=== PATIENT | female | born 1950 | race Caucasian/White ===

== ENCOUNTER 2019-01-08 19:43 | Emergency (ER) | payer MEDICARE, BC ==
[2019-01-08 20:08] VITALS: BP 140/78
--- NOTE | 2019-01-08 20:10 | UC ---
Lower Extremity/Ankle HPI - HPI Summary HPI Summary: slipped and fell this afternoon twisting right ankle - History of Current Complaint Chief Complaint: UCLowerExtremity Stated Complaint: R ANKLE INJURY Time Seen by Provider: 01/08/19 19:59 Hx Obtained From: Patient ?: No Onset/Duration: Sudden Onset, Lasting Hours, Still Present Severity Initially: Moderate Severity Currently: Mild - took ibuprofen tank cleaner Pain Intensity: 0 Aggravating Factor(s): Standing, Ambulation Able to Bear Weight: Yes - Allergies/Home Medications Allergies/Adverse Reactions: Allergies Allergy/AdvReac Type Severity Reaction Status Date / Time No Known Allergies Allergy Verified 01/08/19 19:50 Home Medications: Home Medications Ibuprofen TAB* [Motrin TAB* 400 MG] 400 mg PO ONCE PRN 01/08/19 [History Confirmed 01/08/19] PMH/Surg Hx/FS Hx/Imm Hx Previously Healthy: Yes Other History Of: Negative For: Anticoagulant Therapy - Surgical History Surgical History: Yes Surgery Procedure, Year, and Place: hysterectomy,D/C, abdominal surgery - intestinal blockage - Family History Known Family History: Positive: None - Social History Occupation: Retired Lives: With Family Alcohol Use: Occasionally Alcohol Amount: 1 glass of wine today at dinner Substance Use Type: None Smoking Status (MU): Former Smoker - Immunization History Most Recent Influenza Vaccination: 2012 Most Recent Tetanus Shot: up to date Most Recent Pneumonia Vaccination: 2012 Review of Systems All Other Systems Reviewed And Are Negative: Yes Constitutional: Positive: Negative Skin: Positive: Negative Eyes: Positive: Negative ENT: Positive: Negative Respiratory: Positive: Negative Cardiovascular: Positive: Negative Gastrointestinal: Positive: Negative Genitourinary: Positive: Negative Motor: Positive: Decreased ROM - right ankle Neurovascular: Positive: Negative Musculoskeletal: Positive: Arthralgia - right lateral ankle, Edema Neurological: Positive: Negative Psychological: Positive: Negative Is Patient Immunocompromised?: No Physical Exam Triage Information Reviewed: Yes Appearance: Well-Appearing, No Pain Distress, Well-Nourished Vital Signs: Initial Vital Signs Temp 98.9 F 01/08/19 19:51 Pulse 69 01/08/19 19:51 Resp 20 01/08/19 19:51 BP 0/0 01/08/19 19:51 Pulse Ox 98 01/08/19 19:51 Vital Signs Reviewed: Yes Eye Exam: Normal Eyes: Positive: Conjunctiva Clear ENT Exam: Normal ENT: Positive: Normal ENT inspection, Hearing grossly normal. Negative: Nasal congestion, Trismus, Muffled voice, Hoarse voice Dental Exam: Normal Neck exam: Normal Neck: Positive: Supple, Nontender Respiratory Exam: Normal Respiratory: Positive: No respiratory distress, No accessory muscle use Cardiovascular Exam: Normal Cardiovascular: Positive: RRR, Pulses Normal, Brisk Capillary Refill Musculoskeletal Exam: Other Musculoskeletal: Positive: Strength Intact, ROM Limited @ - right ankle, Edema @ - right lateral ankle Neurological Exam: Normal Neurological: Positive: Alert, Muscle Tone Normal Psychological Exam: Normal Skin Exam: Normal Diagnostics - Radiology No standard instances Radiology Interpretation Completed By: ED Physician - fracture lateral malleolus Lower Extremity Course/Dx - Course Course Of Treatment: cam boot, non weight bearing, crutches, RICE, IBUPROFEN (patient refused additional pain med) for with orthopedic in 2-3 days. recheck bp with pcp in 1- 2 weeks - Differential Dx/Diagnosis Provider Diagnosis: Closed right ankle fracture, Hypertension Discharge - Sign-Out/Discharge Documenting (check all that apply): Patient Departure All imaging exams completed and their final reports reviewed: No Studies - Discharge Plan Condition: Stable Disposition: HOME Patient Education Materials: Ibuprofen (By mouth), Ankle Fracture (ED), Crutch Instructions (ED), R.I.C.E. Treatment (ED) Referrals: Yudith Hylton NP [Primary Care Provider] - 2 Weeks (bp re-check) Flaco Naik MD [Medical Doctor] - 2 Days Additional Instructions: ++++remain completely non weight bearing on right leg---keep boot on! - Billing Disposition and Condition Condition: STABLE Disposition: Home
--- NOTE | 2019-01-08 23:34 | UC ---
- Progress Note Progress Note: RADIOLOGY REPORT REVIEWED. CONFIRMS Spiral fracture of the distal fibula without significant displacement. NO CHANGE IN MGMT. Course/Dx - Diagnoses Provider Diagnoses: Closed right ankle fracture, Hypertension Discharge - Sign-Out/Discharge Documenting (check all that apply): Post-Discharge Follow Up All imaging exams completed and their final reports reviewed: Yes - Discharge Plan Condition: Stable Disposition: HOME Patient Education Materials: Ibuprofen (By mouth), Ankle Fracture (ED), Crutch Instructions (ED), R.I.C.E. Treatment (ED) Referrals: Yudith Hylton NP [Primary Care Provider] - 2 Weeks (bp re-check) Flaco Naik MD [Medical Doctor] - 2 Days Additional Instructions: ++++remain completely non weight bearing on right leg---keep boot on! - Billing Disposition and Condition Condition: STABLE Disposition: Home
[2019-01-10 09:25] LABS: Hepatitis C Antibody Nonreactive (Nonreactive)
== END 2019-01-08 21:02 | disposition home or self-care (01) ==
LOC: UCEAST 19:43
DX: S82.831A Other fracture of upper and lower end of right fibula, initial encounter for closed fracture (principal); W01.0XXA Fall on same level from slipping, tripping and stumbling without subsequent striking against object, initial encounter; Y92.9 Unspecified place or not applicable; I10 Essential (primary) hypertension; Z87.891 Personal history of nicotine dependence
CPT/HCPCS: 36415; 86803; 99211; G0463

== ENCOUNTER 2019-10-27 09:33 | Emergency (ER) | payer MEDICARE, BC ==
[2019-10-27 09:41] VITALS: BP 149/96
--- NOTE | 2019-10-27 10:20 | UC ---
Throat Pain/Nasal Cam HPI - HPI Summary HPI Summary: CHIEF COMPLAINT: Sore throat, dry cough, headache, sinus discomfort. HPI: This is a healthy 69-year-old female who reports a approximately 2 month history of upper respiratory symptoms. Initially this condition has a fever and a sore throat. This resolved and then after 3 weeks. It returned and worsened in terms of the cough. Over the last few weeks and particularly over the last few days. The dry cough, congestion and especially the sore throat and sinus discomfort has worsened. This includes a headache. VITAL SIGNS REVIEWED. Within normal limits unless noted here. 149/96 NURSES NOTE REVIEWED.sore throat uri sx x 1 month not improving. - History of Current Complaint Chief Complaint: UCGeneralIllness Stated Complaint: SORE THROAT, COUGH Time Seen by Provider: 10/27/19 10:17 Pain Intensity: 0 - Allergies/Home Medications Allergies/Adverse Reactions: Allergies Allergy/AdvReac Type Severity Reaction Status Date / Time No Known Allergies Allergy Verified 10/27/19 09:41 PMH/Surg Hx/FS Hx/Imm Hx - Additional Past Medical History Additional PMH: PAST MEDICAL HISTORY- CHRONIC and RECURRENT HEALTH PROBLEM LIST REVIEWED. Information relevant to present complaint: VISIT HISTORY REVIEWED. hysterectomy,D/C, abdominal surgery -intestinal blockage MEDICATIONS & ALLERGIES REVIEWED. HYPERTENSION STATUS: Not being treated for high blood pressure. SOCIAL HISTORY: Smoker: Home: Lives with , was also been sick. Employment: Retired teacher, nonsmoker Previously Healthy: Yes Other History Of: Negative For: Anticoagulant Therapy - Surgical History Surgical History: Yes Surgery Procedure, Year, and Place: hysterectomy,D/C, abdominal surgery - intestinal blockage - Family History Known Family History: Positive: None - Social History Alcohol Use: Occasionally Alcohol Amount: 1 glass of wine today at dinner Substance Use Type: None Smoking Status (MU): Former Smoker - Immunization History Most Recent Influenza Vaccination: 2012 Most Recent Tetanus Shot: up to date Most Recent Pneumonia Vaccination: 2012 Review of Systems All Other Systems Reviewed And Are Negative: Yes Constitutional: Positive: Negative ENT: Positive: Sore Throat, Nasal Discharge, Sinus Congestion, Sinus Pain/ Tenderness Respiratory: Positive: Cough Cardiovascular: Positive: Negative Gastrointestinal: Positive: Negative Genitourinary: Positive: Negative Is Patient Immunocompromised?: No Physical Exam - Summary Physical Exam Summary: Appearance: The patient is well-appearing, is in no pain or distress, and is well-nourished. Eyes: Conjunctiva are clear. Pupils are equal and reactive to light and accommodation. Extra ocular muscle movement is intact. ENT: The hearing is grossly normal, the pharynx is normal, except for slight erythema without tonsillar swelling or exudate;the TMs are normal. There is no muffled or hoarse voice. No stridor. The maxillary sinuses are mildly tender to percussion. Neck: The neck is supple and there is no lymphadenopathy. Respiratory: The chest is non-tender to palpation and without crepitus. The lungs are clear, there are normal breath sounds, and there is no respiratory distress. No wheezes, rales or rhonchi. Cardiovascular: Heart sounds reveal a regular rate and rhythm. There are no clicks, rubs or murmurs. There are no carotid bruits or thrills. Circulation is grossly intact. Abdomen: The abdomen is soft and nontender. There is no organomegaly. Bowel sounds are present and within normal limits. No point tenderness at McBurneys point. No CVA tenderness. Musculoskeletal: Strength is intact. The patient moves all extremities. Neurological: The patient is alert. Motor and sensory are examination grossly intact. Speech is normal. Psychological: The patient displays age appropriate behavior, and is conversant. GCS=15. Skin: Negative for rashes. Triage Information Reviewed: Yes Vital Signs: Initial Vital Signs Temp 98.1 F 10/27/19 09:37 Pulse 64 10/27/19 09:37 Resp 16 10/27/19 09:37 BP 149/96 10/27/19 09:37 Pulse Ox 100 10/27/19 09:37 Vital Signs Reviewed: Yes Throat Pain/Nasal Course/Dx - Differential Dx/Diagnosis Differential Diagnosis/HQI/PQRI: Sinusitis, Tonsillitis Provider Diagnosis: Sinusitis Discharge ED - Sign-Out/Discharge Documenting (check all that apply): Patient Departure All imaging exams completed and their final reports reviewed: No Studies - Discharge Plan Condition: Stable Disposition: HOME Prescriptions: Amoxicillin PO (*) [Amoxicillin 875 MG (*)] 875 mg PO BID #14 tab MDD 2 Patient Education Materials: Sinusitis (ED) Referrals: Yudith Hylton NP [Primary Care Provider] - Additional Instructions: WE DISCUSSED: You may have a virus or a sinusitis caused by a virus or a bacteria. Start amoxicillin for 7 days. PLEASE SEEK CARE AT THE EMERGENCY DEPARTMENT IF SYMPTOMS WORSEN OR IF NEW SYMPTOMS DEVELOP. FOLLOW UP WITH YOUR PRIMARY CARE PHYSICIAN IF CONDITION CONTINUES BEYOND 5 DAYS WITHOUT IMPROVEMENT. YOUR DIAGNOSIS IS: SINUSITIS YOUR PRESCRIPTION RECOMMENDATION IS: AMOXICILLIN FOR 7 DAYS; TAKE TWICE A DAY OTHER INSTRUCTIONS: Lots of warm fluids; hot showers; steam; clear nose of secretions with warm water. Hypertension Discharge Instructions: Your blood pressure reading today was 149/96, indicating HYPERTENSION. Follow- up with your primary care provider within 4 weeks for blood pressure check and appropriate recommendations and treatment, as needed. FOR PAIN AND/OR SLEEP: For pain: Ibuprofen (Motrin and other brand names) 400-600mg PLUS acetaminophen (Tylenol and other brand names) 500mg - 1000mg every 8 hours. - Billing Disposition and Condition Condition: STABLE Disposition: Home
[2019-10-27 10:27] LABS: Influenza A Molecular Negative (Negative); Influenza B Molecular Negative (Negative)
== END 2019-10-27 10:38 | disposition home or self-care (01) ==
LOC: UCEAST 09:33
DX: J32.9 Chronic sinusitis, unspecified (principal); J02.9 Acute pharyngitis, unspecified; R05 Cough; R51 Headache; Z87.891 Personal history of nicotine dependence
CPT/HCPCS: 99212; G0463

== ENCOUNTER 2024-05-05 05:38 | Observation (INO) ==
[~2024-05-05 05:38] MED LIST: Metoclopramide 5 MG/ML VIAL (10 mg) IV PRN; NS 0.45% 1000 ml BAG 1,000 ML IV SCH; Naloxone 0.4 mg VIAL 0.4 mg/ml 1 ml VIAL IV PRN; Ondansetron 4 mg VIAL 2 MG/ML 2 ml VIAL IV PRN
[2024-05-05] MEDS ORDERED: Tranexamic Acid 1 GM/100ML BAG 2,000 MG/200 ML BAG IV ONE (06:09)
[2024-05-05] MEDS ORDERED: ceFAZolin 2 GM PREMIX 2 GM/50 ML BAG ONE (06:09)
[2024-05-05 06:19] LABS: Rapid COVID-19 Molecular Undetected (Undetected)
[2024-05-05] MEDS: Buffered Lidocaine 1% SYRIN 1 ml INTRADERM ONE (06:20)
[2024-05-05] MEDS ORDERED: Lidocaine 2% PF 5 ML VIAL ONE (06:20)
[2024-05-05] MEDS: Scopolamine 1 mg/72hr PATCH TRANSDERM ONE (06:21)
[2024-05-05] MEDS ORDERED: Midazolam 2 mg/2 ml VIAL 1 mg/ml 2 ml VIAL (2 mg) ONE (06:21)
[2024-05-05] MEDS ORDERED: fentaNYL 250 mcg/5 ml 50 MCG/ML 5 ml VIAL (250 MCG) ONE (06:21)
[2024-05-05] MEDS: Lactated Ringers 1000 ml BAG 1,000 ML IV SCH ×2 (06:21→12:32)
[2024-05-05] MEDS ORDERED: Ondansetron 4 mg VIAL 2 MG/ML 2 ml VIAL ONE (06:32)
[2024-05-05] MEDS ORDERED: Dexamethasone IV 4 MG/ML VIAL 1 ml VIAL ONE (06:32)
[2024-05-05] MEDS ORDERED: ROPIVACAINE 5 MG/ML 30 ML BTL (0.5%) ONE (06:57)
[2024-05-05] MEDS ORDERED: Ondansetron 4 mg VIAL 2 MG/ML 2 ml VIAL IV PRN (07:33)
[2024-05-05] MEDS ORDERED: Morphine 2 MG/ML SYRINGE IV PRN (07:33)
[2024-05-05] MEDS ORDERED: Ondansetron ODT 4 mg TAB 4 MG TAB PO PRN (07:33)
[2024-05-05] MEDS ORDERED: Lactulose 30 ml UDC PO PRN (07:33)
[2024-05-05] MEDS ORDERED: Calcium Carb (TUMS) 500 mg CHEW TAB PO PRN (07:33)
[2024-05-05] MEDS ORDERED: Magnesium Hydroxide LIQ 30 ML UDC PO PRN (07:33)
[2024-05-05] MEDS ORDERED: Glycopyrrolate IV 0.2 MG/ML 1 ML VIAL ONE (07:57)
[2024-05-05] MEDS ORDERED: Phenylephrine 40 mcg/mL 10mL (400mcg) SYRINGE ONE ×2 (08:32→10:44)
[2024-05-05] MEDS ORDERED: Propofol 10 MG/ML 20 ML BTL ONE ×2 (08:33→14:41)
[2024-05-05] MEDS ORDERED: fentaNYL 100 mcg/2 ml 50 MCG/ML VIAL ONE (10:58)
[2024-05-05] MEDS: fentaNYL 100 mcg/2 ml 50 MCG/ML VIAL IV PRN (10:59)
[2024-05-05] MEDS: Magnesium Hydroxide LIQ 30 ML UDC PO SCH (13:03)
[2024-05-05] MEDS: Vitamin THERAPEUTIC TAB PO SCH (13:03)
[2024-05-05] MEDS: Acetaminophen IV 1 GM/100ML 1,000 MG/100 ML BAG IV ONE (13:51)
[2024-05-05] MEDS ORDERED: ceFAZolin 2 GM in NS PREMIX 2 GM/100 ML BAG IVPB SCH (16:00)
[2024-05-05] MEDS: ceFAZolin 2 GM PREMIX 2 GM/50 ML BAG IV SCH (16:26)
[2024-05-06 06:53] LABS: Hematocrit 32.2 % (35-45); Hemoglobin 11.3 g/dL (11.5-14.3); Platelet Count 207 10^3/uL (150-450)
[2024-05-06 07:17] LABS: Calcium 8.4 mg/dL (8.6-10.3); Creatinine, Serum 0.76 mg/dL (0.51-0.95); Potassium 4.4 mmol/L (3.5-5.0); eGFR CKD-EPI 83.7 (>60)
[2024-05-06 10:24] VITALS: BP 132/60
== END 2024-05-06 11:51 | disposition home or self-care (01) ==
LOC: OR 05:38 → SSU 05:38
PROVIDERS: ADMIT Orthopaedic Surgery Adult Reconstructive Orthopaedic Surgery; ATTEND Orthopaedic Surgery Adult Reconstructive Orthopaedic Surgery